=== PATIENT | male | born 1990 | race Caucasian/White ===

== ENCOUNTER → 2017-12-11 18:56 | Outpatient (CLI) | payer OTHER, SELFPAY ==
--- NOTE | 2017-12-11 18:40 | PC.NURSE ---
HERE FOR REMOVAL OF LYUBOV FROM SCALP THAT WERE PLACED 2 WEEKS AGO. AREA WELL APPROXIMATED WITH NO SIGNS OF INFECTION NOTED. 5 LYUBOV REMOVED. TOLERATED WELL AND INSTRUCTED TO FOLLOW UP FOR ANY PROBLEMS
== END ==
PROVIDERS: Family Provider Family Medicine; PCP Family Medicine; Visit Provider Nurse Practitioner Family
DX: S01.01XD Laceration without foreign body of scalp, subsequent encounter (principal)

== ENCOUNTER 2021-05-29 10:58 | Emergency (ER) | payer BC, SELFPAY ==
[2021-05-29 11:05] VITALS: BP 121/83; PULSE 74; RESP 18; TEMP 36.8; O2SAT 100; BMI 29.6
[2021-05-29 11:14] VITALS: PULSE 74; RESP 18; O2SAT 100; BMI 29.5
--- NOTE | 2021-05-29 11:24 | HMH.EDUTC ---
[facility] – [place] Disposition Clinical Impression: Injury of lip Qualifiers: Encounter type: initial encounter Qualified Code(s): S09.93XA - Unspecified injury of face, initial encounter Disposition: Home, Self-Care Condition on Discharge: Good Instructions: Amoxicillin and Clavulanic Acid Additional Instructions: Apply Neosporin to wound area on top of right upper lip Follow up with Dentist for broken tooth Ice to area may help with swelling and bruising Follow up with your family Doctor if no improvement or any worsening of symptoms Return if needed Prescriptions: Amoxicillin/Potassium Clav [Augmentin 875-125 Tablet] 1 tab PO Q12H 5 Days #10 tab Transmission Status: Received by [id number] Referrals: Frankie Yoon MD [Primary Care Provider] - As needed Time of Disposition: 11:40 Medical Decision Making - Alberto Inquiry Pt receiving controlled substance: No Alberto was queried for this patient: No Vital Signs: 05/29/21 11:05 05/29/21 11:14 05/29/21 11:43 Temperature 98.3 F 98.2 F Temperature Source Temporal Artery Scan Oral Pulse Rate 73 Pulse Rate [Left Radial] 74 74 Respiratory Rate 18 18 19 Blood Pressure 121/83 Blood Pressure [Left Arm] 121/83 Blood Pressure Mean [Left Arm] 95 Blood Pressure Source [Left Arm] Automatic Cuff Blood Pressure Position [Left Arm] Sitting 02 Sat by Pulse Oximetry 100 100 Oxygen Delivery Method Room Air Room Air Medical Decision Narrative: Swelling noted to right side of upper lip just below mustache area and top border of lip with broken front tooth and area on inside of upper lip had small wound area noted, Area was swollen and appeared like small laceration with abrasion and discussed with patient and recommended consult with ED physician and possibly sent to ED for evaluation and closure and pt declined States that it is closed and not bleeding he was just worried about infection and wanted to get antibiotics for it Patient educated on scaring and damage to the [place] border and still declined transfer and closure [facility] [place] HPI - General Stated complaint: AO 05/28 lac to Lip Time Seen by Provider: 05/29/21 11:24 Mode of Arrival: Ambulatory Source of Information: Patient Limitations: No Limitations Description of Symptoms (Recalled from Triage Doc. by RN): abrasion to right upper lip after hitting it on a chair last night around 8 - History of Present Illness Provider Complaint: Patient states that he was at a football game last night when he fell and hit his right side of his upper lip just below his mustache States that today it was swollen and he was worried that it may get infected so he came in to get it checked and get some antibiotics for it - Related Data Previous Rx's Medication Instructions Recorded Amoxicillin/Potassium Clav 1 tab PO Q12H 5 Days #10 tab 05/29/21 [Augmentin 875-125 Tablet] Allergies Allergy/AdvReac Type Severity Reaction Status Date / Time No Known Allergies Allergy Verified 07/16/19 16:01 - Worker's Comp Is this a Worker's Comp case?: No [facility] History - Hepatitis A Screen Drug use history?: No High risk sexual behaviors?: No History of sexually transmitted infection?: No Currently employed?: No Childcare worker?: No Do you have indoor plumbing?: Yes Do you have electricity?: Yes Attestation statement:: This patient has been screened for Hepatitis A risk factors. I have reviewed the patient's past medical history: Yes Other Surgeries: Yes: No Previous Surgery Amputation: No Fractures: No - Social History Smoking Status: Never smoker Alcohol Intake: current Alcohol Intake Frequency:: holidays/special occasions only Substance Use Type: denies use Occupational Status: employed Housing: house Household Members: spouse Family Hx:: No significant family history ROS Obtained: Yes All systems reviewed & no additional complaints, Yes Systems reviewed as appropriate & no additional complaint
[2021-05-29 11:43] VITALS: BP 121/83; PULSE 73; RESP 19; TEMP 36.8; O2SAT 99
== END 2021-05-29 11:48 | disposition home or self-care (01) ==
PROVIDERS: Emergency Provider Nurse Practitioner; PCP Family Medicine
DX: S00.511A Abrasion of lip, initial encounter (principal); W01.190A Fall on same level from slipping, tripping and stumbling with subsequent striking against furniture, initial encounter; Y92.019 Unspecified place in single-family (private) house as the place of occurrence of the external cause
CPT/HCPCS: 99202; G0463

== ENCOUNTER 2021-10-27 09:51 | Emergency (ER) | payer OTHER, SELFPAY ==
--- NOTE | 2021-10-27 10:45 | HMH.EDUTC ---
[facility] – [place] Disposition Clinical Impression: Encounter for laboratory testing for COVID-19 virus Disposition: Home, Self-Care Condition on Discharge: Good Instructions: Preventing the Spread of Coronavirus Discharge Instructions Additional Instructions: Drink plenty of fluids. Take tylenol for pain or fever. Return if you begin to have difficulty breathing. Follow up with your regular doctor. GO TO THE ER FOR ANY WORSENING SYMPTOMS Quarantine until you know the results of your covid-19 test. If it is positive, the health department should call you and give you further instructions about your length of Quarantine and other things. Notify your school or workplace of your results and follow their instructions regarding return to work/school. Referrals: Frankie Yoon MD [Primary Care Provider] - Time of Disposition: 10:46 Medical Decision Making - Medical Records Medical records reviewed: No: I reviewed the patient's medical records. - Alberto Inquiry Pt receiving controlled substance: No Vital Signs: 10/27/21 10:46 10/27/21 10:48 Temperature 98 F 98 F Temperature Source Oral Pulse Rate 55 L Pulse Rate [Left] 55 L Respiratory Rate 16 16 Blood Pressure 135/55 L Blood Pressure [Right Arm] 133/55 L Blood Pressure Mean [Right Arm] 81 02 Sat by Pulse Oximetry 98 [facility] [place] HPI - General Stated complaint: covid symptoms Time Seen by Provider: 10/27/21 10:47 - History of Present Illness Provider Complaint: He was sent for a covid-19 test by his employer after going to a concert. He denies any complaints. - Related Data Previous Rx's Medication Instructions Recorded Amoxicillin/Potassium Clav 1 tab PO Q12H 5 Days #10 tab 05/29/21 [Augmentin 875-125 Tablet] Allergies Allergy/AdvReac Type Severity Reaction Status Date / Time No Known Allergies Allergy Verified 07/16/19 16:01 [facility] History - Hepatitis A Screen Attestation statement:: This patient has been screened for Hepatitis A risk factors. I have reviewed the patient's past medical history: Yes Other Surgeries: Yes: No Previous Surgery Amputation: No Fractures: No - Social History Smoking Status: Never smoker Alcohol Intake: current Alcohol Intake Frequency:: holidays/special occasions only Substance Use Type: denies use Occupational Status: employed Housing: house Household Members: spouse Family Hx:: No significant family history ROS Obtained: Yes All systems reviewed & no additional complaints - Constitutional Constitutional: Reports system reviewed and no additional complaints, except as docu - Eyes Eyes: Reports system reviewed and no additional complaints, except as docu - ENT Ears, Nose, Mouth, and Throat: Reports system reviewed and no additional complaints, except as docu - Cardiovascular Cardiovascular: Reports system reviewed and no additional complaints, except as docu - Respiratory Respiratory: Reports system reviewed and no additional complaints, except as docu - Gastrointestinal Gastrointestingal: Reports: system reviewed and no additional complaints, except as docu Physical Exam - General General appearance: alert, in no apparent distress - Head Head exam: atraumatic, normocephalic, normal inspection - Eye Eye exam: Present: normal appearance, PERRL, EOMI - ENT ENT exam: Present: normal exam, normal oropharynx, mucous membranes moist, TM's normal bilaterally, normal external ear exam - Neck Neck exam: Present: normal inspection, full ROM, trachea midline. Absent: meningismus, lymphadenopathy - Chest Chest inspection: Present: normal inspection, symmetric chest wall rise. Absent: tenderness - Respiratory Respiratory exam: Present: normal lung sounds bilaterally. Absent: respiratory distress - Cardiovascular Cardiovascular exam: Present: regular rate, normal rhythm. Absent: JVD - Abdominal Exam Abdominal exam: Present: soft, normal bowel sounds. Abse
[2021-10-27 10:46] VITALS: BP 133/55; PULSE 55; RESP 16; TEMP 36.6; O2SAT 98; BMI 30.2
[2021-10-27 10:48] VITALS: BP 135/55; PULSE 55; RESP 16; TEMP 36.6
== END 2021-10-27 10:49 | disposition home or self-care (01) ==
PROVIDERS: Emergency Provider Nurse Practitioner Family; PCP Family Medicine
DX: Z03.89 Encounter for observation for other suspected diseases and conditions ruled out (principal); Z20.822 Contact with and (suspected) exposure to COVID-19
CPT/HCPCS: 99212; C9803; G0463; U0003; U0005

== ENCOUNTER 2022-07-21 12:49 | Emergency (ER) | payer OTHER, SELFPAY ==
[2022-07-21 15:06] VITALS: BP 137/87; PULSE 69; RESP 16; TEMP 37.8; O2SAT 99; BMI 30.2
--- NOTE | 2022-07-21 15:19 | PC.NURSE ---
swab sent to the lab
[2022-07-21 15:20] LABS: Coronavirus 19, PCR Not Detected (NotDetected); Influenza A, PCR Not Detected (NotDetected); Influenza B, PCR Not Detected (NotDetected)
--- NOTE | 2022-07-21 15:42 | EXP.UTC ---
Discharge Plan Disposition Patient Disposition: Home, Self-Care Condition: Good Prescriptions Prescriptions: New oseltamivir [Tamiflu] 75 mg capsule 75 mg PO BID Qty: 10 0RF dxbivlsvoeqhisk-omzrldvap-VH [Bromfed DM] 2-30-10 mg/5 mL Syrup 5 ml PO Q6H PRN (Reason: Cough) Qty: 240 0RF ondansetron 4 mg Tablet,Disintegrating 4 mg PO Q8H PRN (Reason: Nausea) Qty: 9 0RF Referrals Follow up/Referrals: Frankie Yoon MD [Primary Care Provider] - See instructions Activity Restrictions/Add. Instructions Additional Instructions/Restrictions: Drink plenty of fluids. Take tylenol or ibuprofen for pain or fever. Take the medications as directed. Follow up with your regular doctor. GO TO THE ER FOR ANY WORSENING SYMPTOMS Clinical Impressions Clinical Impression: Influenza Stand Alone Forms Stand Alone Forms: Work/School Release Instructions Patient Instructions: DI for Influenza -- Adult, Oseltamivir Discharge ED Provider: Fortunato Dow [facility] General Stated complaint: h/a, congestion/cough, sore throat, no smell/taste Mode of Arrival: Ambulatory Source of Information: Patient Limitations: No Limitations Time Seen by Provider: 07/21/22 15:41 Description of Symptoms (Recalled from Triage Doc. by RN): Pt c/o headache, sore throat, body aches, chills, congested. No taste or smell. Symptoms started earlier this week and has gotten progressively worse HEENT Symptoms (Recalled from RN notes): Yes (sore throat, fever, chills) Resp Symptoms (Recalled from RN notes): No Skin Symptoms (Recalled from RN notes): No MS Symptoms (Recalled from RN notes): No Functional Status (Recalled from RN notes): na History of Present Illness Provider Complaint: He states that for the past 2 days he has had body aches, chills, sinus congestion, and low grade fever. He has been exposed to influenza. Related Data Previous Rx's Medication Instructions Recorded yuiovclyxrpoyrv-hujczikrfummaeg-SN 5 ml PO Q6H PRN Cough #240 mL 07/21/22 2 mg-30 mg-10 mg/5 mL oral syrup (Bromfed DM) ondansetron 4 mg disintegrating 4 mg PO Q8H PRN Nausea #9 tabs 07/21/22 tablet oseltamivir 75 mg capsule (Tamiflu) 75 mg PO BID #10 caps 07/21/22 Allergies Allergy/AdvReac Type Severity Reaction Status Date / Time No Known Allergies Allergy Verified 07/16/19 16:01 Worker's Comp Is this a Worker's Comp case?: No PFSH PFSH Social History Smoking Status: Never smoker alcohol intake: current substance use type: denies use current occupational status: employed Travel in the last 8 weeks: None household members: spouse housing: house ROS Obtained: Yes All systems reviewed & no additional complaints except as documented Constitutional Constitutional: Reports chills and Reports fever(s) Eyes Eyes: Denies eye discharge ENT Ears, Nose, Mouth, and Throat: Reports as per HPI Cardiovascular Cardiovascular: Denies chest pain Respiratory Respiratory: Denies chest congestion and Reports cough Gastrointestinal Gastrointestingal: Reports nausea; Denies abdominal pain, constipation, cramping, diarrhea or vomiting Musculoskeletal Musculoskeletal: Denies arthralgias Integumentary/Breasts Skin/Breast: Denies rash Neurologic Neurologic: Denies paresthesias Physical Exam General General appearance: alert and in no apparent distress Head Head exam: atraumatic, normocephalic and normal inspection Eye Eye exam: Present normal appearance, PERRL and EOMI ENT ENT exam: Present normal exam, normal oropharynx, mucous membranes moist, TM's normal bilaterally and normal external ear exam Expanded ENT Exam TM/Canal exam: Bilateral TM: erythema and bulging Nose exam: Absent sinus tenderness Mouth exam: Present normal external inspection; Absent drooling Teeth exam: Present normal inspection Throat exam: Present tonsillar erythema, tonsillomegaly and tonsillar exudate Neck Ne
[2022-07-21 15:54] VITALS: BP 137/87; PULSE 69; RESP 16; TEMP 37.8; O2SAT 99
== END 2022-07-21 16:26 | disposition home or self-care (01) ==
PROVIDERS: Emergency Provider Nurse Practitioner Family; PCP Family Medicine
DX: J11.89 Influenza due to unidentified influenza virus with other manifestations (principal)
CPT/HCPCS: 99212; C9803; G0463; U0003; U0005

== ENCOUNTER 2024-04-18 12:25 | Outpatient (CLI) | payer OTHER, SELFPAY ==
--- NOTE | 2024-04-18 12:30 | XR_ITS ---
FINAL REPORT CLINICAL HISTORY: PAIN FINDINGS: Right knee Three views were obtained. There is no acute fracture or dislocation. The joint spaces appear normal. There is soft tissue edema anterior to the patella measuring 1.6 cm in thickness. IMPRESSION: Soft tissue edema anterior to the patella. Reviewed, Interpreted and Dictated by Gabe Espinal MD Transcribed by Yulissa Jimenez Authenticated and [facility]
== END 2024-04-18 23:59 | disposition home or self-care (01) ==
PROVIDERS: PCP Family Medicine; Visit Provider Family Medicine
DX: M25.561 Pain in right knee (principal)
CPT/HCPCS: 73562

== ENCOUNTER 2024-10-02 10:34 | Emergency (ER) | payer OTHER, SELFPAY ==
[2024-10-02 11:10] VITALS: BP 129/76; PULSE 76; RESP 21; TEMP 36.8; O2SAT 98; BMI 27.8
[2024-10-02 11:18] LABS: UTC Influenza A Antigen Positive (Negative); UTC Influenza B Antigen Negative (Negative)
--- NOTE | 2024-10-02 11:18 | ED_ITS ---
Discharge Plan Disposition Patient Disposition: Home, Self-Care Condition: Good Prescriptions Prescriptions: New oseltamivir [Tamiflu] 75 mg capsule 75 mg PO Q12H 5 Days Qty: 10 0RF Referrals Follow up/Referrals: Frankie Yoon MD [Primary Care Provider] - See instructions Activity Restrictions/Add. Instructions Additional Instructions/Restrictions: * Start Tamiflu today if you are going to take it. Discussed risk and possible benefits. * Lots of rest * Increase Fluids water, Gatorade, powerade, pedialyte,if infant/toddler/child * Alternate Tylenol and / or ibuprofen as discussed for fever, aches, chills Follow up IMMEDIATELY with your family doctor for new or worsening Symptoms OR no noticeable improvement over the next 48-72 hours, 911 for difficulty or breathing * You or your child area contagious until no fever, aches, chills for 24 hours with medication for symptoms * Help Prevent the spread of influenza: * ?Wash your hands often. Use soap and water. Wash your hands after you use the bathroom, change a child's diapers, or sneeze. Wash your hands before you prepare or eat food. Use gel hand cleanser that has 60% alcohol, when soap and water are not available. Do not touch your eyes, nose, or mouth unless you have washed your hands first. * Cover your mouth when you sneeze or cough. Cough into a tissue or the bend of your arm. If you use a tissue, throw it away immediately and wash your hands. * Clean shared items with a germ-killing pillow cleaner. Clean table surfaces, doorknobs, and light switches. Do not share towels, silverware, and dishes with people who are sick. Wash bed sheets, towels, silverware, and dishes with soap and water. * Wear a mask over your mouth and nose if you are sick. The face mask may help protect others from becoming infected with the flu. Wear the mask when in common areas of your home or if you seek care with a healthcare provider. * Stay away from others if you are sick. Stay at home until 24 hours after your fever and symptoms are gone. Clinical Impressions Clinical Impression: Influenza Stand Alone Forms Stand Alone Forms: Work/School Release Instructions Patient Instructions: DI for Influenza -- Adult, Influenza, Oseltamivir Print Language Print Language: [place] Citizen Discharge ED Provider: Cathryn Magallon [facility] [place] HPI General Stated complaint: fever, body aches, chills, h/a, cough Mode of Arrival: Ambulatory Source of Information: Patient Limitations: No Limitations Time Seen by Provider: 10/02/24 11:19 Description of Symptoms (Recalled from Triage Doc. by RN): BODY ACHES, COUGH, FEVER, NAUSEA HEENT Symptoms (Recalled from RN notes): No Resp Symptoms (Recalled from RN notes): Yes Skin Symptoms (Recalled from RN notes): No MS Symptoms (Recalled from RN notes): No Functional Status (Recalled from RN notes): NA History of Present Illness Provider Complaint: Patient states that he started on Sunday not feeling well and it has continued to get worse with body aches, chills, headache and cough States today he has had a fever so he came in to get checked Related Data Previous Rx's ?Medication ?Instructions ?Recorded oseltamivir 75 mg capsule (Tamiflu) 75 mg PO Q12H 5 days #10 caps 10/02/24 Allergies Allergy/AdvReac Type Severity Reaction Status Date / Time No Known Allergies Allergy Verified 07/16/19 16:01 Worker's Comp Is this a Worker's Comp case?: No [facility] Disclaimer: The information contained in this section may have been updated after the patient was seen, as this information can be updated by other users. Social History Smoking Status: Never smoker alcohol intake: current alcohol intake frequency: holidays/special occasions only substance use type: denies use current occupational status: employed Travel in the last 8 weeks: None household members: spouse housing: house Have you lived/traveled outside [place] in past 30 days?: No Contact w/someone who lives/traveled outside [place] past 30 days?: No Exposure to someone with infectious disease in past 14 days?: No Do you have a fever (greater than 100.4 F or 38 C)?: Yes Have you tested positive for COVID-19: No Exposed to someone with COVID-19 in past 14 days?: No Do you have a sore throat?: No Do you have a cough?: Yes Do you have any weakness?: No Do you have any diarrhea?: No Are you experiencing any unusual bleeding?: No Do you have any muscle aches/pain?: Yes Do you have any abdominal pain?: No Are you experiencing loss of taste or smell?: No ROS Obtained: Yes All systems reviewed & no additional complaints except as documented and Yes Systems reviewed as appropriate & no additional complaints except as documented Constitutional Constitutional: Reports system reviewed and no additional complaints, except as documented, Reports as per HPI, Reports body ache, Reports chills, Reports fever(s) and Reports headache(s) ENT Ears, Nose, Mouth, and Throat: Reports system reviewed and no additional complaints, except as documented, Reports as per HPI, Reports headache(s) and Reports nasal congestion Cardiovascular Cardiovascular: Reports system reviewed and no additional complaints, except as documented and Reports as per HPI Respiratory Respiratory: Reports system reviewed and no additional complaints, except as documented, Reports as per HPI and Reports cough Gastrointestinal Gastrointestingal: Reports system reviewed and no additional complaints, except as documented and as per HPI Neurologic Neurologic: Reports headache(s) Physical Exam General General appearance: alert and in no apparent distress ENT ENT exam: Present normal exam, normal oropharynx, mucous membranes moist and TM's normal bilaterally Respiratory Respiratory exam: Present normal lung sounds bilaterally; Absent respiratory distress or wheezes Cardiovascular Cardiovascular exam: Present regular rate, normal rhythm and normal heart sounds Abdominal Exam Abdominal exam: Present soft and normal bowel sounds; Absent distention or tenderness Neurological Exam Neurological exam: Present alert, oriented X3 and normal gait Medical Decision Making Medical Records Screening: Per USPSTF and CDC recommendations, given the prevalence of disease in our region, it is our hospital?s policy to screen for HIV and viral Hepatitis for all patients aged 18 and over and those with ongoing risk factors. Alberto Inquiry Pt receiving controlled substance: No Alberto was queried for this patient: No Vital Signs: 10/02/24 11:10 Temperature 98.2 F Temperature Source Oral Pulse Rate [Left Radial] 76 Respiratory Rate 21 Blood Pressure [Right Arm] 129/76 Blood Pressure Mean [Right Arm] 93 Blood Pressure Source [Right Arm] Automatic Cuff Blood Pressure Position [Right Arm] Supine 02 Sat by Pulse Oximetry 98 Lab Data Lab results reviewed: Yes I reviewed the patient's lab results. Lab Results 10/02/24 11:08: Influenza Type A Ag Positive A, Influenza Type B Ag Negative
[2024-10-02 11:30] VITALS: BP 129/76; PULSE 76; RESP 21; TEMP 36.8; O2SAT 98
== END 2024-10-02 11:32 | disposition home or self-care (01) ==
PROVIDERS: Emergency Provider Nurse Practitioner; PCP Family Medicine
DX: J11.1 Influenza due to unidentified influenza virus with other respiratory manifestations (principal)
CPT/HCPCS: 87804; 99213; G0381